=== PATIENT | female | born 1975 | race Caucasian/White ===

== ENCOUNTER 2018-11-09 03:08 | Emergency (ER) | payer MEDICAID ==
[2018-11-09] MEDS: LORAZEPAM 1 MG TAB PO (04:48)
[2018-11-09] MEDS: traMADol 50 MG TAB PO (04:49)
[2018-11-09] MEDS: BACITRACIN 0.9 GM OINT TOP (05:06)
== END 2018-11-09 06:06 | disposition home or self-care (01) ==
LOC: FTE 03:08
DX: S09.90XA Unspecified injury of head, initial encounter (principal); S81.811A Laceration without foreign body, right lower leg, initial encounter; S70.12XA Contusion of left thigh, initial encounter; F41.9 Anxiety disorder, unspecified; T74.11XA Adult physical abuse, confirmed, initial encounter; Y09 Assault by unspecified means
CPT/HCPCS: 99283; Z7502